=== PATIENT | female | born 1995 | race Caucasian/White ===

== ENCOUNTER 2025-06-20 11:47 | Emergency (ER) | payer SELFPAY ==
[~2025-06-20] VITALS: Ht 167.6 cm; Wt 49.0 kg
[2025-06-20 11:57] VITALS: TEMP 98
[2025-06-20 12:48] VITALS: BP 120/75; O2SAT 98
== END 2025-06-20 12:48 | disposition home or self-care (01) ==
LOC: ER 11:50
DX: F31.9 Bipolar disorder, unspecified (principal)